=== PATIENT | female | born 1975 | race Caucasian/White ===

== ENCOUNTER 2020-10-12 07:29 | Outpatient (REF) | payer OTHER, SELFPAY ==
[2020-10-14 05:42] LABS: Lyme Blot 2.84 index
[2020-10-14 11:28] LABS: Lyme Abs Screen POSITIVE
[2020-10-17 17:11] LABS: 18 KD (IgG) Band NON-REACTIVE; 23 KD (IgG) Band REACTIVE; 23 KD (IgM) Band REACTIVE; 28 KD (IgG) Band NON-REACTIVE; 30 KD (IgG) Band NON-REACTIVE; 39 KD (IgM) Band NON-REACTIVE; 41 KD (IgM) Band REACTIVE; 45 KD (IgG) Band NON-REACTIVE; 58 KD (IgG) Band NON-REACTIVE; 66 KD (IgG) Band NON-REACTIVE; 93 KD (IgG) Band NON-REACTIVE; Lyme IgG Blot Interp NEGATIVE (NEGATIVE); Lyme IgM Blot Interp POSITIVE (NEGATIVE)
== END 2020-10-12 07:30 | disposition home or self-care (01) ==
LOC: HO.LAB 07:29
PROVIDERS: Visit Provider Internal Medicine
DX: A69.20 Lyme disease, unspecified (principal)
CPT/HCPCS: 36415; 86617; 86618

== ENCOUNTER 2023-03-02 09:54 | Outpatient (REF) | payer OTHER, SELFPAY | END 2023-03-02 09:55 | disposition home or self-care (01) | LOC: HO.SH 09:54 | PROVIDERS: Visit Provider Internal Medicine | DX: Z01.118 Encounter for examination of ears and hearing with other abnormal findings (principal); H93.293 Other abnormal auditory perceptions, bilateral | CPT/HCPCS: 92557 ==

== ENCOUNTER 2023-06-22 10:06 | Outpatient (AMB) | payer OTHER, SELFPAY ==
--- NOTE | 2023-06-22 10:08 | A.OFFVIS_ITS ---
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 She fell directly on it and had shoulder pain. She was seen outside clinic and they recommended gentle activity with limited range of motion and no lifting. An MRI was obtained and showed a impaction fracture of the greater tuberosity. She states she is feeling better but still with some discomfort. She is set to start physical therapy in jane roximately 2 weeks. [facility] Surgical History (Updated 06/22/23 @ 10:25 by Wilda Hernandez CMA) History of surgery on lower extremity Social History (Updated 06/22/23 @ 10:14 by Wilda Hernandez CMA) Patient Tobacco Use Status: Never used Tobacco Current occupation: teacher, Left hand dominant Physical Exam Const General: cooperative, healthy appearing, no acute distress and well groomed Orientation/consciousness: oriented to person and oriented to place HEENT Head: Yes normal to inspection, Yes normocephalic and Yes atraumatic Eyes General: appearance normal, both eyes and all related structures Alignment and Position: alignment normal Conjunctivae: conjunctivae normal EOM: EOMs intact bilaterally Neck Neck: Yes normal visual inspection and Yes trachea midline Resp Other: No rerpiratory distress Effort & Inspection: normal respiratory effort and able to speak in complete sentences GI Other: No abdominal distension Back/Spine/Pelvis Cervical Spine: normal cervical lordosis and cervical ROM normal Skin General skin exam: no rashes or lesions noted Neuro General: oriented to person, oriented to place and gait normal Extrem Other: A left shoulder with painful abduction to 70 degrees and external rotation 35 degrees. Results Reviewed Results Reviewed: MRI Done at [facility] 05/20/23: 1. Humeral head greater tuberosity nondisplaced impaction fracture. Accompanying supraspinatus and infraspinatus posttraumatic tendinosis without high-grade or retracted cuff tear. 2. Proximal humerus intramedullary lesion has benign features, perhaps a fibrocystic lesion, intraosseous cysts or enchondroma. Assessment & Plan Assessment & Plan (1) Greater tuberosity of humerus fracture: Code(s): S42.253A - Displaced fracture of greater tuberosity of unspecified humerus, initial encounter for closed fracture Category: Medical Plan: This is an active and healthy 48-year-old woman with an impaction fracture of the greater tuberosity of the right shoulder. I think her current course of action is reasonable. She should initiate gentle physical therapy in the next few weeks to avoid heavy lifting. There are any questions or concerns arise she can return to see me. Coding Level of Care Code New Pt Level 3 (18935) Diagnoses Greater tuberosity of humerus fracture S42.253A
== END 2023-06-22 10:35 | disposition home or self-care (01) ==
PROVIDERS: Visit Provider Orthopaedic Surgery
DX: S42.255A Nondisplaced fracture of greater tuberosity of left humerus, initial encounter for closed fracture (principal)
CPT/HCPCS: 99203

== ENCOUNTER → 2023-06-22 10:06 | Outpatient (BNVA) | payer OTHER, SELFPAY | PROVIDERS: Visit Provider Orthopaedic Surgery ==